=== PATIENT | female | born 1990 | race African-American/Black ===

== ENCOUNTER 2018-01-15 00:06 | Emergency (ER) | payer OTHER ==
[2018-01-15 01:12] VITALS: BMI 42.6
--- NOTE | 2018-01-15 01:24 | PDOC ---
History of Present Illness - General History Source: Patient Exam Limitations: No Limitations - History of Present Illness Initial Comments: 01/15/18 01:47 The patient is a 27 year old female presenting with her boyfriend, with a significant past medical history of asthma, ovarian cysts and obesity, who presents to the ED complaining of right sided pelvic pain and constipation for the past 3 days. She describes her pain as ranging from mild to moderate, without radiation or modifying factors. She notes that her constipation is irregular for her, as she normally has a bowel movement every day. The patient denies chest pain, shortness of breath, headache and dizziness. Denies fever, chills, nausea, vomiting, diarrhea or constipation. Denies dysuria , frequency, urgency and hematuria. LMP: 01/07/2018 (Irregular due to ovarian cysts) Allergies: None Past surgical history: None Social History: Marijuana use. No alcohol use noted <Dar Rice - Last Filed: 01/15/18 01:50> <Beba Hernandez - Last Filed: 01/15/18 03:41> - General Chief Complaint: Pain Stated Complaint: ABD PAIN Time Seen by Provider: 01/15/18 01:24 Past History <Dar Rice - Last Filed: 01/15/18 01:50> - Past Medical History Asthma: Yes COPD: No - Suicide/Smoking/Psychosocial Hx Smoking History: Never smoked Have you smoked in the past 12 months: No Information on smoking cessation initiated: No Hx Alcohol Use: No Drug/Substance Use Hx: No Substance Use Type: Marijuana <Beba Hernandez - Last Filed: 01/15/18 03:41> - Past Medical History Allergies/Adverse Reactions: Allergies Allergy/AdvReac Type Severity Reaction Status Date / Time No Known Allergies Allergy Verified 01/15/18 01:04 Review of Systems - Review of Systems Able to Perform ROS?: Yes Comments:: 01/15/18 01:47 GENERAL/CONSTITUTIONAL: No fever or chills. No weakness. HEAD, EYES, EARS, NOSE AND THROAT: No change in vision. No ear pain or discharge. No sore throat. GASTROINTESTINAL: (+) Right sided pelvic pain, constipation. No nausea, vomiting , diarrhea. GENITOURINARY: No dysuria, frequency, or change in urination. CARDIOVASCULAR: No chest pain or shortness of breath. RESPIRATORY: No cough, wheezing, or hemoptysis. MUSCULOSKELETAL: No joint or muscle swelling or pain. No neck or back pain. SKIN: No rash NEUROLOGIC: No headache, vertigo, loss of consciousness, or change in strength/ sensation. ENDOCRINE: No increased thirst. No abnormal weight change. HEMATOLOGIC/LYMPHATIC: No anemia, easy bleeding, or history of blood clots. ALLERGIC/IMMUNOLOGIC: No hives or skin allergy. <Dar Rice - Last Filed: 01/15/18 01:50> *Physical Exam - Vital Signs Last Vital Signs Temp Pulse Resp BP Pulse Ox 98.2 F 73 18 89/45 100 01/15/18 01:06 01/15/18 01:06 01/15/18 01:06 01/15/18 01:06 01/15/18 01:06 - Physical Exam Comments: 01/15/18 01:46 Constitutional: Awake, alert, oriented. No acute distress. Head: Normocephalic. Atraumatic Eyes: PERRL. EOMI. Conjunctivae are not pale. ENT: Mucous membranes are moist and intact. Posterior pharynx without exudates or erythema. Uvula midline. Neck: Supple. Full ROM. No lymphadenopathy. Cardiovascular: Regular rate. Regular rhythm. S1, S2 regular. Distal pulses are 2+ and symmetric. Pulmonary/Chest: No evidence of respiratory distress. Clear to auscultation bilaterally No wheezing, rales or rhonchi. Abdominal: (+) Mild Right lower quadrant tenderness with rebound. Soft and non- distended. There is no tenderness. No guarding or rigidity. No organomegaly. No palpable masses. Good bowel sounds. Back: No CVA tenderness. Musculoskeletal: No edema. No cyanosis. No clubbing. Full range of motion in all extremities. Nocalf tenderness. Radial/pedal pulses are intact and 2+ bilaterally Skin: Skin is warm and dry. No petechiae. No purpura. Neurological: Alert and oriented to person, place, and time. Cranial nerves II -XII are grossly intact. Normal speech. Strength is grossly symmetric. No sensory deficits. Psychiatric: Good eye contact. Normal interaction, affect and behavior. <Dar Rice - Last Filed: 01/15/18 01:50> - Vital Signs Last Vital Signs Temp Pulse Resp BP Pulse Ox 98.2 F 73 18 89/45 100 01/15/18 01:06 01/15/18 01:06 01/15/18 01:06 01/15/18 01:06 01/15/18 01:06 <Beba Hernandez - Last Filed: 01/15/18 03:41> ED Treatment Course - LABORATORY CBC & Chemistry Diagram: 01/15/18 01:48 01/15/18 01:48 <Beba Hernandez - Last Filed: 01/15/18 03:41> *DC/Admit/Observation/Transfer - Attestations Scribe Attestion: 01/15/18 01:45 Documentation prepared by Dar Rice, acting as chief medical officer for Thang Reyes <Dar Rice - Last Filed: 01/15/18 01:50> - Discharge Dispostion Decision to Admit order: No <Beba Hernandez - Last Filed: 01/15/18 03:41> Diagnosis at time of Disposition: Gas pain - Discharge Dispostion Disposition: HOME Condition at time of disposition: Stable - Referrals Referrals: Rodolfo Lacey MD [Primary Care Provider] - - Patient Instructions Printed Discharge Instructions: Constipation - Post Discharge Activity
[2018-01-15] MEDS ORDERED: LACTULOSE 20 GM/30 ML UDC (FOR ORAL USE ONLY) PO ONE (01:31)
[2018-01-15] MEDS ORDERED: SODIUM CHLORIDE 0.9% 500 ML INFUS.BAG IV ONE (01:31)
[2018-01-15] MEDS ORDERED: LACTULOSE 20 GM/30 ML UDC (FOR ORAL USE ONLY) ONE (01:53)
[2018-01-15 01:59] LABS: BASO % 0.6 % (0-2.0); EOS % 1.4 % (0-4.5); HEMATOCRIT 38.5 % (32.4-45.2); HEMOGLOBIN 12.6 GM/dL (10.7-15.3); LYMPH % 37.8 % (8-40); MCH 26.7 pg (25.7-33.7); MCHC 32.7 g/dl (32.0-36.0); MEAN CELL VOLUME 81.6 fl (80-96); MEAN PLT VOLUME 8.8 fl (7.5-11.1); MONO % 6.6 % (3.8-10.2); NEUT % 53.6 % (42.8-82.8); PLATELET COUNT 289 K/MM3 (134-434); RBC 4.72 M/mm3 (3.60-5.2); RDW 14.4 % (11.6-15.6); WHITE BLOOD COUNT 5.6 K/mm3 (4.0-10.0)
[2018-01-15 02:12] LABS: INR 1.09 (0.83-1.09); PROTHROMBIN TIME (PATIENT) 12.3 SEC (9.7-13.0)
[2018-01-15 02:12] LABS: URINE APPEARANCE CLEAR; URINE BILIRUBIN NEGATIVE (<2.0 mg/dL); URINE COLOR LTYELLOW; URINE GLUCOSE (UA) NEGATIVE (NEGATIVE); URINE KETONE NEGATIVE (NEGATIVE); URINE LEUK ESTERASE NEGATIVE (NEGATIVE); URINE NITRITE NEGATIVE (NEGATIVE); URINE PROTEIN NEGATIVE (NEGATIVE); URINE UROBILINOGEN NEGATIVE mg/dL (0.2-1.0)
[2018-01-15 02:15] LABS: HCG,QUALITATIVE URINE Negative
[2018-01-15 02:21] LABS: ALBUMIN 3.9 g/dl (3.4-5.0); ALK PHOS 62 U/L (45-117); ANION GAP 5 MMOL/L (8-16); BILIRUBIN,TOTAL 0.3 mg/dL (0.2-1.0); BLOOD UREA NITROGEN 10 mg/dL (7-18); CALCIUM 9.1 mg/dL (8.5-10.1); CHLORIDE 105 mmol/L (98-107); CO2 29 mmol/L (21-32); GLUCOSE,RANDOM 97 mg/dL (74-106); POTASSIUM 4.1 mmol/L (3.5-5.1); SGOT/AST 15 U/L (15-37); SGPT/ALT 18 U/L (12-78); SODIUM 139 mmol/L (136-145); TOT PROT 7.9 g/dl (6.4-8.2)
[2018-01-15 03:21] VITALS: BP 139/62; PULSE 89; TEMP 98.5
== END 2018-01-15 04:35 | disposition home or self-care (01) ==
LOC: JER 00:06
DX: E28.2 Polycystic ovarian syndrome (principal); Z87.09 Personal history of other diseases of the respiratory system; E66.9 Obesity, unspecified; Z68.41 Body mass index [BMI] 40.0-44.9, adult
CPT/HCPCS: 36415; 80053; 81003; 84703; 85025; 85610; 86850; 86900; 86901; 99281-25

== ENCOUNTER 2019-01-14 13:41 | Emergency (ER) | payer SELFPAY ==
[2019-01-14 14:07] VITALS: BP 121/73; PULSE 63; TEMP 98.5; BMI 41.3
[2019-01-14] MEDS ORDERED: KETOROLAC TROMETHAMINE 60 MG/2 ML VIAL IM ONE (14:58)
[2019-01-14] MEDS ORDERED: KETOROLAC TROMETHAMINE 60 MG/2 ML VIAL ONE (15:09)
--- NOTE | 2019-01-14 15:18 | PDOC ---
History of Present Illness - General Chief Complaint: Chest Pain Stated Complaint: CHEST PAIN Time Seen by Provider: 01/14/19 14:33 History Source: Patient Exam Limitations: No Limitations - History of Present Illness Initial Comments: 01/14/19 15:03 28 y/o female presents to ED with complaints of right-sided chest pain worsened with movement for the past 1-2 months. Patient states has taken nothing for the pain and denies any chest pain to the left side shortness of breath, bruising to area, or rash. Patient states normally sleeps on her right side and denies any recent sports injury. 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 Timing/Duration: intermittent ( 1-2 months) Associated Symptoms: reports: chest pain (rt sided) Past History - Travel Traveled outside of the country in the last 30 days: No Close contact w/someone who was outside of country & ill: No - Past Medical History Allergies/Adverse Reactions: Allergies Allergy/AdvReac Type Severity Reaction Status Date / Time No Known Allergies Allergy Verified 01/15/18 01:04 Home Medications: Ambulatory Orders Polyethylene Glycol 3350 [Miralax (For Daily Use) -] 17 gm PO DAILY #1 bottle Asthma: Yes COPD: No - Suicide/Smoking/Psychosocial Hx Smoking History: Never smoked Have you smoked in the past 12 months: No Hx Alcohol Use: No Drug/Substance Use Hx: Yes (marijuana) Substance Use Type: Marijuana Patient Lives Alone: No Lives with/in: spouse/SO Review of Systems - Review of Systems Able to Perform ROS?: No Is the patient limited Surinamese proficient: No Constitutional: No: Symptoms Reported HEENTM: No: Symptoms Reported Respiratory: No: Symptoms reported Cardiac (ROS): No: Symptoms Reported ABD/GI: No: Symptoms Reported : No: Symptoms Reported Musculoskeletal: Yes: Muscle Pain (rt pectoral) Integumentary: No: Symptoms Reported Neurological: No: Symptoms reported Endocrine: No: Symptoms Reported Hematologic/Lymphatic: No: Symptoms Reported *Physical Exam - Vital Signs Last Vital Signs Temp Pulse Resp BP Pulse Ox 98.5 F 63 19 121/73 100 01/14/19 14:03 01/14/19 14:03 01/14/19 14:03 01/14/19 14:03 01/14/19 14:03 - Physical Exam General Appearance: Yes: Nourished, Appropriately Dressed. No: Apparent Distress HEENT: positive: EOMI, KANDACE, TMs Normal, Pharynx Normal. negative: Pale Conjunctivae Neck: positive: Supple Respiratory/Chest: positive: Chest Tender (rt upper pectoral over 2-3rd ribs lateral of sternum extending lat of mcl), Lungs Clear, Normal Breath Sounds. negative: Respiratory Distress, Accessory Muscle Use Cardiovascular: positive: Regular Rhythm, Regular Rate. negative: Murmur Gastrointestinal/Abdominal: positive: Soft. negative: Tenderness Extremity: positive: Normal Capillary Refill Integumentary: positive: Normal Color, Warm, Moist Neurologic: positive: Motor Strength 5/5 (ambulatory) Heart Score/ECG Review - ECG Intrepretation Rhythm: Regular Rhythm (nsr at 73) Medical Decision Making - Medical Decision Making 01/14/19 15:32 Right-sided chest achiness without past 1-2 months worsened with movement Exam patient with reproducible right upper pectoral tenderness EKG normal sinus rhythm. Plan Toradol IM with recommendations to take Tylenol for treatment of costochondritis. *DC/Admit/Observation/Transfer Diagnosis at time of Disposition: Costochondritis - Discharge Dispostion Disposition: HOME Condition at time of disposition: Improved - Referrals - Patient Instructions Printed Discharge Instructions: DI for Costochondritis Additional Instructions: Take Tylenol 975 mg every 8 hours for discomfort. Avoid movements that trigger your discomfort - Post Discharge Activity
--- NOTE | 2019-01-15 12:44 | EKG ---
Test Reason : Blood Pressure : / mmHG Vent. Rate : 073 BPM Atrial Rate : 073 BPM P-R Int : 156 ms QRS Dur : 096 ms QT Int : 390 ms P-R-T Axes : 032 -13 002 degrees QTc Int : 429 ms NORMAL SINUS RHYTHM NORMAL ECG NO PREVIOUS ECGS AVAILABLE Confirmed by Tolu Cancino MD ([id number]) on 01/15/2019 12:44:31 PM Referred By: Confirmed By:Tolu Cancino MD
== END 2019-01-14 16:07 | disposition home or self-care (01) ==
LOC: JER 13:41
DX: M94.0 Chondrocostal junction syndrome [Tietze] (principal)
CPT/HCPCS: 93005; 93010; 99281-25